=== PATIENT | female | born 1935 | race Asian ===

== ENCOUNTER 2016-06-19 15:56 | Outpatient (RCR) | payer MEDICARE ==
[~2016-06-19 15:56] MED LIST: ADULT LOW DOSE81 MG PO; ATORVASTATIN CA80 MG PO; CITALOPRAM HBR10 MG PO; CLONAZEPAM2 MG PO; CLOPIDOGREL; COZAAR100 MG PO; METFORMIN HYDR500 M1 PO; NORVASC 5MG5 MG/TAB PO; Patient's Own Medica PO; WAL-ZAN 150150 MG PO; ZOLPIDEM TART10 MG PO
[2016-07-20] MEDS ORDERED: NITROSTAT0.4 M1 SL (09:04)
[2016-07-20] MEDS ORDERED: ISOSORBIDE30 MG PO (09:05)
[2016-07-20] MEDS ORDERED: ISOSORBIDE MONO60 M1 PO (10:13)
[2016-07-22] MEDS ORDERED: METOPROLOL SUCC25 M1 PO (22:17)
== END 2016-09-17 | disposition home or self-care (01) ==
LOC: CARDREHAB 15:56
DX: I21.4 Non-ST elevation (NSTEMI) myocardial infarction (principal)

== ENCOUNTER 2016-07-22 23:44 | Inpatient (IN) | payer MEDICARE ==
[~2016-07-22] VITALS: Wt 48.0 kg
[~2016-07-22 23:44] MED LIST changes: +ISOSORBIDE MONO60 M1 PO; +ISOSORBIDE30 MG PO; +METOPROLOL SUCC25 M1 PO; +NITROSTAT0.4 M1 SL
[2016-07-22 23:45] VITALS: BP 197/75
[2016-07-23] VITALS (24 sets, daily range): BP systolic 130–197; BP diastolic 51–92
[2016-07-24] VITALS (19 sets, daily range): BP systolic 135–168; BP diastolic 56–86
== END 2016-07-24 14:26 | disposition short-term general hospital (02) | DRG 303 ==
LOC: MED/SURG 23:44
PROVIDERS: ADMIT Family Medicine
DX: I25.10 Atherosclerotic heart disease of native coronary artery without angina pectoris (principal); Z66 Do not resuscitate; I10 Essential (primary) hypertension; E11.51 Type 2 diabetes mellitus with diabetic peripheral angiopathy without gangrene; R79.89 Other specified abnormal findings of blood chemistry; E78.5 Hyperlipidemia, unspecified; D64.9 Anemia, unspecified; I45.10 Unspecified right bundle-branch block; Z79.82 Long term (current) use of aspirin; Z79.02 Long term (current) use of antithrombotics/antiplatelets

== ENCOUNTER → 2016-11-20 | Outpatient (CLI) | payer MEDICARE ==
[2016-07-24 14:00] VITALS: BP 143/86
[~2016-11-20] MED LIST changes: +AMLODIPINE BESYL5 MG PO; +CARVEDILOL3.125 MG PO; +ISOSORBIDE MON120 MG PO; +LOPRESSOR 550 MG/TAB PO; +LORAZEPAM INT2 MG/ML PO; +MIRAPEX0.5 MG PO; +MORPHINE S100 MG/5 M PO; +RANITIDINE HCL150 M1 PO; +SENNA8.6 M1 PO
== END ==
LOC: LAB 10:56
DX: I10 Essential (primary) hypertension (principal); G47.39 Other sleep apnea; F41.1 Generalized anxiety disorder; N63 Unspecified lump in breast; R35.8 Other polyuria; E11.9 Type 2 diabetes mellitus without complications

== ENCOUNTER → 2016-11-28 | Outpatient (CLI) | payer MEDICARE ==
[2016-07-24 14:00] VITALS: BP 143/86
== END ==
LOC: MAMMO 08:23
DX: Z12.31 Encounter for screening mammogram for malignant neoplasm of breast (principal); N63 Unspecified lump in breast
CPT/HCPCS: G0202

== ENCOUNTER 2016-12-10 09:20 | Emergency (ER) | payer MEDICARE ==
[~2016-12-10] VITALS: Ht 154.9 cm; Wt 47.5 kg
[~2016-12-10 09:20] MED LIST changes: -AMLODIPINE BESYL5 MG PO; -CARVEDILOL3.125 MG PO; -ISOSORBIDE MON120 MG PO; -LOPRESSOR 550 MG/TAB PO; -LORAZEPAM INT2 MG/ML PO; -MIRAPEX0.5 MG PO; -MORPHINE S100 MG/5 M PO; -RANITIDINE HCL150 M1 PO; -SENNA8.6 M1 PO
[2016-12-10] MEDS ORDERED: ISOSORBIDE30 MG PO (10:00)
[2016-12-10] MEDS ORDERED: SENNA8.6 M1 PO (10:01)
[2016-12-10] MEDS ORDERED: MIRAPEX0.5 MG PO (10:01)
[2016-12-10] MEDS ORDERED: MORPHINE S100 MG/5 M PO (10:01)
[2016-12-10] MEDS ORDERED: LORAZEPAM INT2 MG/ML PO (10:02)
[2016-12-10] MEDS ORDERED: AMLODIPINE BESYL5 MG PO (10:57)
[2016-12-10] MEDS ORDERED: LOPRESSOR 550 MG/TAB PO (10:58)
[2016-12-10] MEDS ORDERED: RANITIDINE HCL150 M1 PO (10:59)
[2016-12-10 13:36] VITALS: BP 154/68
== END 2016-12-10 12:46 | disposition short-term general hospital (02) ==
LOC: ED 09:20
DX: I25.10 Atherosclerotic heart disease of native coronary artery without angina pectoris (principal); I11.0 Hypertensive heart disease with heart failure; I50.1 Left ventricular failure, unspecified; Z79.82 Long term (current) use of aspirin
CPT/HCPCS: J1644

== ENCOUNTER 2016-12-17 13:44 | Emergency (ER) | payer MEDICARE ==
[~2016-12-17 13:44] MED LIST changes: +AMLODIPINE BESYL5 MG PO; +LOPRESSOR 550 MG/TAB PO; +LORAZEPAM INT2 MG/ML PO; +MIRAPEX0.5 MG PO; +MORPHINE S100 MG/5 M PO; +RANITIDINE HCL150 M1 PO; +SENNA8.6 M1 PO
[2016-12-17] MEDS ORDERED: CARVEDILOL3.125 MG PO (14:06)
[2016-12-17] MEDS ORDERED: ISOSORBIDE MON120 MG PO (14:06)
[2016-12-17 15:12] VITALS: BP 122/54
== END 2016-12-17 15:16 | disposition home or self-care (01) ==
LOC: ED 13:44
DX: R07.89 Other chest pain (principal); I25.110 Atherosclerotic heart disease of native coronary artery with unstable angina pectoris; I11.9 Hypertensive heart disease without heart failure; Z79.82 Long term (current) use of aspirin; I10 Essential (primary) hypertension; Z95.5 Presence of coronary angioplasty implant and graft; E78.5 Hyperlipidemia, unspecified; I20.0 Unstable angina